=== PATIENT | female | born 1995 | race American Indian/Alaskan Native ===

== ENCOUNTER 2018-06-23 11:06 | Emergency (ER) | payer OTHER ==
[2018-06-23 11:15] VITALS: BP 139/77
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
== END 2018-06-23 13:11 | disposition home or self-care (01) ==
LOC: ED 11:06
DX: S06.0X0A Concussion without loss of consciousness, initial encounter (principal); M79.604 Pain in right leg; Z91.018 Allergy to other foods; Z79.899 Other long term (current) drug therapy; V89.2XXA Person injured in unspecified motor-vehicle accident, traffic, initial encounter; Y93.89 Activity, other specified; Y99.8 Other external cause status; Y92.410 Unspecified street and highway as the place of occurrence of the external cause
CPT/HCPCS: 70450